=== PATIENT | female | born 1965 | race Caucasian/White ===

== ENCOUNTER → 2021-09-22 14:34 | Outpatient (BNVA) | payer OTHER, SELFPAY | PROVIDERS: Family Provider Nurse Practitioner Family; PCP Nurse Practitioner Family; Visit Provider Emergency Medicine | DX: M15.9 Polyosteoarthritis, unspecified (principal); M79.89 Other specified soft tissue disorders; X58.XXXA Exposure to other specified factors, initial encounter; S69.92XA Unspecified injury of left wrist, hand and finger(s), initial encounter | CPT/HCPCS: 73140 ==